=== PATIENT | female | born 1985 | race Caucasian/White ===

== ENCOUNTER 2016-12-18 21:30 | Emergency (ER) | payer OTHER ==
[~2016-12-18 21:30] MED LIST: ALBUTEROL17 GM; AMOXICILLIN PO; AMOXICILLIN250 MG PO; AMOXICILLIN875 MG PO; ANTIVERT PO; ASPIRIN PO; ATENOLOL; ATIVAN PO; BACTRIM DS TABL1 TAB PO; BENADRYL25 MG PO; BENTYL20 MG DOB; BROMFED DM COU118 ML PO; BUTALBITAL-ASP-1 CA1 PO; CLARITIN10 M2 PO; CORTISPORIN OTIC; DIAMOX SEQUELS500 MG PO; FLEXERIL10 MG PO; FLONASE 0.05% N16 G1; GABAPENTIN300 MG PO; HYDROCODON-ACE1 EAC7 PO; IBUPROFEN800 MG PO; LISINOPRIL10 MG PO; LISINOPRIL20 MG PO; LORATADINE; LORTAB 5/500 TA1 TA1 PO; MACROBID100 M1 PO; MEDROL DOSEPAK4 MG PO; MOBIC PO; MOTRIN PO; MOTRIN600 MG PO; MUCINEX D ER T1 EAC1 PO; NAPROSYN500 MG PO; NO MEDICATIONS; ONDANSETRON ODT4 MG PO; PHENERGAN PO; PHENERGAN W/CO120 ML PO; PHENERGAN25 M1 DOB; PHENERGAN25 MG PO; PREDNISONE; PREDNISONE PO; PRILOSEC40 MG PO; PROTONIX20 MG; ROBITUSSIN100 MG/51; SUMATRIPTAN20 MG; TOPAMAX; VICODIN 5/1 TAB 5/50 PO; XANAX0.5 MG PO; ZOFRAN ODT4 MG PO; ZOLOFT50 MG PO; ZONEGRAN25 MG
[2016-12-18 22:20] LABS: URINE SOURCE CLEAN CATCH
[2016-12-18 22:23] LABS: MICRO INDICATED? YES; URINE APPEARANCE HAZY; URINE BILIRUBIN POS (NEG); URINE BLOOD 3+ (NEG); URINE COLOR YELLOW; URINE GLUCOSE NEG (NORM); URINE KETONE NEG (NEG); URINE LEUKOCYTE ESTERASE NEG (NEG); URINE NITRATE NEG (NEG); URINE PH 5.5 (5-8); URINE PROTEIN 1+ (NEG); URINE SPECIFIC GRAVITY >=1.030 (1.003-1.035); URINE UROBILINOGEN 0.2 MG/DL (NORM)
[2016-12-18 22:23] LABS: BASOPHIL# 0.1 X10e3 (0-0.3); BASOPHIL% 0.4 % (0-2.5); EOSINOPHIL% 0.2 % (0.0-7.0); HEMATOCRIT 40.4 % (35.0-45.0); HEMOGLOBIN 13.1 gm/dL (12.0-16.0); LYMPHOCYTE# 1.8 X10e3 (1.0-3.5); LYMPHOCYTE% 13.8 % (17.0-45.0); MEAN CELL VOLUME 83.3 FL (83-96); MEAN CORPUSCULAR HEMOGLOBIN 27.1 PG (28-34); MEAN CORPUSCULAR HGB CONC 32.5 g/dL (30-36); MEAN PLATELET VOLUME 8.8 FL (6.5-11.5); MONOCYTE# 1.1 X10e3 (0-1.0); MONOCYTE% 8.3 % (3.0-12.0); NEUTROPHIL# 9.9 X10e3 (1.5-7.1); NEUTROPHIL% 77.3 % (40-75); PLATELET COUNT 254 X10e3 (140-420); RED BLOOD COUNT 4.85 X10e (3.90-5.30); RED CELL DISTRIBUTION WIDTH 14.4 % (11.0-15.5); WHITE BLOOD COUNT 12.8 X10e3 (4.0-10.5)
[2016-12-18 22:24] LABS: DIFF IND NO
[2016-12-18 22:25] LABS: CULTURE INDICATED? NO; URINE BACTERIA NEG (NEG); URINE RBC 25-50 /[HPF] (0-2); URINE SQUAMOUS EPITHELIAL CELL OCCAS /[HPF]; URINE TRANSITIONAL EPI CELLS FEW /[HPF]; URINE WBC 0-2 /[HPF] (0-5)
[2016-12-18 22:26] LABS: URINE CRYSTALS CALCIUM OXALATE /[HPF]; URINE MUCUS PRESENT
[2016-12-18 22:39] LABS: ALBUMIN SERUM 4.1 g/dL (3.5-5.0); ALKALINE PHOSPHATASE 57 U/L (32-92); ALT (SGPT) 15 U/L (10-40); AST (SGOT) 20 U/L (10-42); BILIRUBIN,TOTAL 0.6 mg/dL (0.2-2.0); BLOOD UREA NITROGEN 13 mg/dL (9-23); BUN/CREATININE RATIO 16.25; CALCIUM SERUM 8.8 mg/dL (8.4-10.2); CARBON DIOXIDE 24 mmol/L (22-31); CHLORIDE 105 mmol/L (100-111); CREATININE SERUM 0.8 mg/dL (0.6-1.4); GLOM FILT RATE Estimated 98.3 mL/min (>60); GLUCOSE FASTING 109 mg/dL (70-110); LIPASE 29 U/L (22-51); POTASSIUM 3.3 mmol/L (3.5-5.1); PROTEIN TOTAL SERUM 7.4 g/dL (6.0-8.3); SODIUM 139 mmol/L (135-145)
[2016-12-18 22:42] LABS: BILIRUBIN, DIRECT <0.1 mg/dL (0.0-0.2); BILIRUBIN,INDIRECT 0.5 mg/dL (0.0-0.9)
[2017-06-11] MEDS ORDERED: PATIENT'S PHARMACY (13:56)
== END 2016-12-18 23:16 | disposition home or self-care (01) ==
LOC: SED 21:30
PROVIDERS: Emergency Medicine
DX: R10.11 Right upper quadrant pain (principal); R11.2 Nausea with vomiting, unspecified; E28.2 Polycystic ovarian syndrome
CPT/HCPCS: 36415; 80048; 80076; 81003; 83690; 84703; 85025; 96361; 96374; 96375; 99284; J1885; J2405

== ENCOUNTER → 2017-02-02 | Outpatient (CLI) | payer OTHER ==
[~2017-02-02] MED LIST changes: +PATIENT'S PHARMACY
--- NOTE | ~2017-02-02 | XA198 ---
[facility] A Service of [facility] & [facility] RADIOLOGY TEXT RESULTS PATIENT: SOUTH GARCÍA LOCATION: CIVR : 85 UNIT #: [id number] AGE: [address]: Davis Gates II, MD SEX: F ORDER DR: [id number] [facility] [address] [place], [place] [address] [id number] O MR#: [id number] Acc #: [id number] NAME: SOUTH GARCÍA : 1985 SEX: F STUDY DATE/TIME: 02/02/2017 11:01 UNIT: [facility] ROOM: STUDY DESCRIPTION: XA Spinal Puncture Attending Physician: Davis Gates II., M.D. Referring Physician: Davis Gates II., M.D. Ordering Physician: Davis Gates II., M.D. Primary Care Physician: Freedom Schaeffer M.D. MEDICAL IMAGING REPORT This report is preliminary unless electronic signature is present EXAM LP under fluoroscopy with CSF drainage. HISTORY Pseudotumor cerebral. PROCEDURE Procedure, attendant risks and options were discussed with the patient. She understands and wishes to proceed. The patient was placed in the prone position in the angio suite. The back was cleansed with Chlorhexidine solution. Skin was marked prepped, draped and anesthetized with 1% Xylocaine. A 20-gauge spinal needle was inserted into the lumbar subarachnoid space at the L3-L4 level. Opening pressure was measured at 29 cm water. Approximately 25 mL of clear CSF was withdrawn. Closing pressure was measured at 12 cm water. Total fluoroscopy time for the procedure was 1.1 minutes. Total exposure estimated 132 mGy air kerma. A single spot radiograph was obtained. CONCLUSION Successful therapeutic LP with a final closing pressures of 12 and an opening pressure of 29 cm water. Dictated by... Colton Fowler M.D. THIS IS AN ELECTRONICALLY VERIFIED REPORT Colton Fowler M.D. at 02/05/2017 10:30 AM VENKAT/cindi TD: 02/02/2017 17:25 JOB #: [id number] [facility] A Service of [facility] & [facility] RADIOLOGY TEXT RESULTS PATIENT: SOUTH GARCÍA LOCATION: [facility] #: [id number] : 85 UNIT #: [id number] AGE: [address]: Davis Gates II, MD SEX: F ORDER DR: MEDICAL IMAGING REPORT Page 1 of 1 COPY
[2017-02-02 10:50] LABS: HEMATOCRIT 41.3 % (35.0-45.0); HEMOGLOBIN 13.5 gm/dL (12.0-16.0); MEAN CELL VOLUME 83.1 FL (83-96); MEAN CORPUSCULAR HEMOGLOBIN 27.3 PG (28-34); MEAN CORPUSCULAR HGB CONC 32.8 g/dL (30-36); MEAN PLATELET VOLUME 8.7 FL (6.5-11.5); RED BLOOD COUNT 4.97 X10e (3.90-5.30); RED CELL DISTRIBUTION WIDTH 14.3 % (11.0-15.5); WHITE BLOOD COUNT 9.4 X10e3 (4.0-10.5)
[2017-02-02 11:06] LABS: INR 0.9; PARTIAL THROMBOPLASTIN TIME 25.9 SECONDS (23.5-31.3); PROTHROMBIN TIME (PATIENT) 9.5 SECONDS (9.6-11.5)
== END | disposition home or self-care (01) ==
LOC: CIVR 09:50
PROVIDERS: Psychiatry & Neurology Neurology
PROC: 009U3ZZ Drainage of Spinal Canal, Percutaneous Approach (ICD-10-PCS; principal; 2017-02-02)
DX: G93.2 Benign intracranial hypertension (principal)
CPT/HCPCS: 36415; 77003; 85027; 85610; 85730; C1713